=== PATIENT | female | born 1960 | race Caucasian/White ===

== ENCOUNTER 2025-07-13 12:20 | Inpatient (IN) | payer BC ==
[~2025-07-13] VITALS: Ht 167.6 cm; Wt 87.1 kg
[2025-07-13 12:29] VITALS: BP 167/105
[2025-07-13] MEDS ORDERED: METOCLOPRAMIDE HCL 10 MG/2 ML VIAL ONE (12:48)
[2025-07-13] MEDS ORDERED: MORPHINE SULFATE 4 MG/1 ML DISP.SYRIN ONE ×2 (12:49→16:43)
[2025-07-13 12:56] LABS: PLATELET COUNT (AUTO) 339 K/uL (179-408); RED BLOOD CELL COUNT(AUTO) 5.09 MIL/uL (3.63-4.92); RED CELL DISTRIBUTION WIDTH 15.0 % (12.3-17.7); WHITE BLOOD COUNT (AUTO) 8.2 K/uL (3.8-11.8)
[2025-07-13] MEDS ORDERED: LEVE1000 PO (12:59)
[2025-07-13] MEDS ORDERED: LEVO25TA9 PO (12:59)
[2025-07-13] MEDS ORDERED: CARI350T PO (12:59)
[2025-07-13] MEDS ORDERED: LORA-259 PO (12:59)
[2025-07-13] MEDS ORDERED: GABA300C PO (12:59)
[2025-07-13] MEDS: METOCLOPRAMIDE HCL 10 MG/2 ML VIAL IV ONE (13:03)
[2025-07-13] MEDS: MORPHINE SULFATE 4 MG/1 ML DISP.SYRIN IV ONE ×2 (13:03→16:47)
[2025-07-13] MEDS: IV NORMAL SALINE 1000 ML BAG IV ONE ×2 (13:03→13:33)
[2025-07-13 13:10] LABS: ASPARTATE AMINOTRANSFERASE 17.0 U/L (15-37); CREATININE 0.8 mg/dL (0.6-1.3); SODIUM SERUM 140.0 mmol/L (136-145); TOTAL PROTEIN, SERUM 8.2 g/dL (6.4-8.2); UREA NITROGEN, BLOOD 9.0 mg/dL (7-18)
[2025-07-13 13:14] LABS: LACTIC ACID 2.5 mmol/L (0.4-2.0)
[2025-07-13 14:57] LABS: *BILIRUBIN,URIN NEGATIVE (NEGATIVE); *BLOOD, URINE NEGATIVE (NEGATIVE); *CLARITY,URINE CLEAR (CLEAR); *COLOR,URINE YELLOW (YELLOW); *KETONES,URINE NEGATIVE (NEGATIVE); *PROTEIN,URINE NEGATIVE (NEGATIVE); *UROBILINOGEN,URINE 0.2 E.U./dl (NORMAL); LEUKOCYTE ESTERASE ,URINE 3+ (NEGATIVE); NITRITE, URINE POSITIVE (NEGATIVE); UGLUCOSE NEGATIVE (NEGATIVE)
[2025-07-13] MEDS ORDERED: CEFTRIAXONE /D5W 50ML IVPB **ER PYXIS IV ONE (15:42)
[2025-07-13 17:15] VITALS: BP 150/87; TEMP 97.4; O2SAT 96
[2025-07-13] MEDS ORDERED: CYCL10TA9 PO (18:15)
[2025-07-13] MEDS ORDERED: DULO60CA64 PO (18:16)
[2025-07-13] MEDS ORDERED: HYDR-4322 PO ×2 (18:17→18:18)
[2025-07-13] MEDS ORDERED: PROP10TA68 PO (18:18)
[2025-07-13] MEDS ORDERED: ESTR1PAT TD (18:19)
[2025-07-13] MEDS ORDERED: ESTR10TA9 VG (18:19)
[2025-07-13] MEDS ORDERED: AMYL1CAP58 PO (18:20)
[2025-07-13] MEDS ORDERED: PROPRANOLOL HCL 10 MG TABLET PO PRN (18:30)
[2025-07-13] MEDS ORDERED: TEMAZEPAM 15 MG CAPSULE PO PRN (18:45)
[2025-07-13] MEDS ORDERED: ACETAMINOPHEN 325 MG TABLET PO PRN (18:45)
[2025-07-13] MEDS ORDERED: ONDANSETRON 4 MG/2 ML VIAL IV PRN (18:45)
[2025-07-13 19:30] VITALS: BP 146/54; TEMP 98.4; O2SAT 98
[2025-07-13] MEDS: DULOXETINE 60 MG CAPSULE.DR PO SCH (21:43)
[2025-07-13] MEDS: CYCLOBENZAPRINE HCL 10 MG TABLET PO SCH (21:44)
[2025-07-13] MEDS: GABAPENTIN 300 MG CAPSULE PO SCH (21:48)
[2025-07-13] MEDS: IV 1/2NS 1000 ML 1,000 ML IV PRN (22:13)
[2025-07-14] MEDS: HYDROCODONE/APAP 5-325MG TABLET PO PRN (03:27)
[2025-07-14] MEDS: LEVOTHYROXINE SODIUM 75 MCG TABLET PO SCH (06:14)
[2025-07-14] MEDS: PANTOPRAZOLE SODIUM 40 MG TABLET.DR PO SCH (06:15)
[2025-07-14 07:10] LABS: PLATELET COUNT (AUTO) 270 K/uL (179-408); RED BLOOD CELL COUNT(AUTO) 4.42 MIL/uL (3.63-4.92); RED CELL DISTRIBUTION WIDTH 15.1 % (12.3-17.7); WHITE BLOOD COUNT (AUTO) 6.3 K/uL (3.8-11.8)
[2025-07-14 07:50] LABS: ASPARTATE AMINOTRANSFERASE 71.0 U/L (15-37); CREATININE 0.6 mg/dL (0.6-1.3); SODIUM SERUM 138.0 mmol/L (136-145); TOTAL PROTEIN, SERUM 6.8 g/dL (6.4-8.2); UREA NITROGEN, BLOOD 9.0 mg/dL (7-18)
[2025-07-14] MEDS ORDERED: Medication Not On Formulary EA (Amylase/Lipase/Protease (Creon Dr 24,000 Units Capsule) PO SCH (08:00)
[2025-07-14] MEDS: LIPASE/PROTEASE/AMYLASE 4200 UNITS CAPSULE.DR PO SCH (08:05)
[2025-07-14] MEDS: HYDROCORTISONE 10 MG TABLET PO SCH ×2 (08:05→11:42)
[2025-07-14] MEDS: LORAZEPAM 0.5 MG TABLET PO PRN (09:09)
[2025-07-14 11:49] VITALS: BP 186/93; TEMP 98.4; O2SAT 98
[2025-07-14 13:36] VITALS: BP 155/68
[2025-07-14 15:50] VITALS: BP 145/79; TEMP 98; O2SAT 96
[2025-07-14] MEDS ORDERED: CEPH500C2 PO (20:14)
== END 2025-07-14 16:10 | disposition home or self-care (01) | DRG 872 ==
LOC: ER 12:20 → MEDSURG3 16:59
PROVIDERS: ADMIT Internal Medicine; ATTEND Internal Medicine
DX: A41.9 Sepsis, unspecified organism (principal); N39.0 Urinary tract infection, site not specified; E27.40 Unspecified adrenocortical insufficiency; E03.9 Hypothyroidism, unspecified; Z90.710 Acquired absence of both cervix and uterus; Z90.49 Acquired absence of other specified parts of digestive tract; G40.909 Epilepsy, unspecified, not intractable, without status epilepticus; Z79.899 Other long term (current) drug therapy; G89.29 Other chronic pain; S50.312A Abrasion of left elbow, initial encounter; W19.XXXA Unspecified fall, initial encounter; Y92.89 Other specified places as the place of occurrence of the external cause; E66.9 Obesity, unspecified; Z68.31 Body mass index [BMI] 31.0-31.9, adult; Z87.442 Personal history of urinary calculi; Z79.890 Hormone replacement therapy; Z86.39 Personal history of other endocrine, nutritional and metabolic disease
CPT/HCPCS: 36415; 71045; 76770; 83605; 83735; 84100; 85025; 87040; 87086; A4606; A4663; G0378; J0696; J1953; J2270; J2765; J7040